=== PATIENT | male | born 1990 | race Asian ===

== ENCOUNTER → 2017-02-27 | Outpatient (CLI) | payer OTHER | PROVIDERS: ATTEND Physician Assistant | DX: R13.10 Dysphagia, unspecified (principal) | CPT/HCPCS: 92611-GN ==

== ENCOUNTER 2017-08-14 16:29 | Emergency (ER) | payer OTHER ==
[2017-08-14 16:35] VITALS: RESP 18; O2SAT 96
[2017-08-14] MEDS ORDERED: HYOSCYAMINE SULFATE 0.125 MG TAB PO ONE (17:01)
[2017-08-14] MEDS ORDERED: LIDOCAINE 2% VISCOUS 15 ML UDCUP PO ONE (17:01)
[2017-08-14] MEDS ORDERED: MAG HYDROX/AL HYDROX/SIMETH 30 ML UDCUP PO ONE (17:01)
--- NOTE | 2017-08-14 17:04 | EDPHY ---
H & P Stated Complaint: EPIGASTRIC OAIN WITH WATERY STOOLS . DENIES N,V - Personal History Current Tetanus/Diphtheria Vaccine: Yes Current Tetanus Diphtheria and Acellular Pertussis (TDAP): Yes - Medical/Surgical History Hx Asthma: No Hx Chronic Respiratory Disease: No Hx Diabetes: No Hx Cardiac Disease: No Hx Renal Disease: No Hx Cirrhosis: No Hx Alcoholism: No Hx HIV/AIDS: No Hx Splenectomy or Spleen Trauma: No Other PMH: NO PMH - Social History Smoking Status: Never smoked Time Seen by Provider: 08/14/17 16:56 HPI/ROS: CHIEF COMPLAINT: epigastric pain watery stools since last evening HISTORY OF PRESENT ILLNESS: 26-year-old male generally healthy, no history of chronic abdominal pathology or abdominal surgeries complaining of epigastric cramping, watery stools since 11:00 p.m. last evening. No radiation of pain. No back pain. No lower abdominal pain. No nausea or vomiting. Positive appetite currently. No genitalia pain. No abdominal or genitalia trauma. No syncope or near syncope. No flu-like symptoms. PRIMARY CARE PROVIDER: [facility] REVIEW OF SYSTEMS: A ten point review of systems was performed and is negative with the exception of the items mentioned in the HPI PAST MEDICAL & SURGICAL HISTORY: No history of abdominal surgeries SOCIAL HISTORY:nonsmoker. No alcohol use. PHYSICAL EXAM (Prior to examination, patient consented to physical exam, hands were washed and my usual and customary physical exam procedures followed) 1) GENERAL: Well-developed, well-nourished, alert and oriented. Appears to be in no acute distress. Appears well overall 2) HEAD: Normocephalic, atraumatic 3) HEENT: Pupils equal, round, reactive to light bilaterally. Sclera anicteric. Nasopharynx, oropharynx, clear, no lesions. Moist mucous membranes 4) NECK: Full range of motion, no meningeal signs. 5) LUNGS: Clear auscultation bilaterally, no wheezes, no rhonchi, no retractions. 6) HEART: Regular rate and rhythm, no murmur, no heave, no gallop. 7) ABDOMEN: No guarding, tender to palpation midline epigastrium. No palpable or pulsatile mass. negative McBurney's, negative Melgar's, negative Rovsing's, negative peritoneal sign, 8) MUSCULOSKELETAL: Moving all extremities, no focal areas of tenderness, no obvious trauma. No peripheral edema or discoloration. 9) BACK: No CVA tenderness, no midline vertebral tenderness, no fluctuance, no step-off, no obvious trauma, no visual or palpable abnormality. 10) SKIN: No rash, no petechiae. 11) Psychiatric: Patient is oriented X 3, there is no agitation. DIFFERENTIAL DIAGNOSIS: In no particular order, including but not limited to biliary colic, cholecystitis, peptic ulcer disease, pancreatitis, and gastroenteritis. This is a partial list of diagnoses considered. These considerations are based on history, physical exam, past history and reassessment. (Vikash Burrows) Constitutional: Initial Vital Signs Temperature (C) 37.0 C 08/14/17 16:31 Heart Rate 94 08/14/17 16:31 Respiratory Rate 18 08/14/17 16:31 Blood Pressure 115/77 08/14/17 16:31 O2 Sat (%) 96 08/14/17 16:31 O2 Delivery Mode Room Air Allergies/Adverse Reactions: No Known Allergies Allergy (Unverified 08/14/17 16:34) Home Medications: Medication Instructions Recorded NK [No Known Home Meds] 08/14/17 Medical Decision Making ED Course/Re-evaluation: 5:04 p.m.:Care of patient under supervision of primary supervising physician Dr Sanabria . 5:58 p.m.: Re-evaluation, discussed his laboratory studies, H&H elevated which I think are more likely secondary to hemoconcentration and volume depletion. Given IV hydration. He has been re-evaluated after GI cocktail and notes improvement in symptoms. Re-evaluated abdomen at this time which is soft, continued mild tenderness in the epigastrium with negative Melgar's, negative McBurney's point pain. At this time I think that acute surgical abdominal pathology, acute appendicitis, acute cholecystitis, acute pancreatitis, are less than likely in this patient. I do not think that imaging studies are indicated at this time. 6:40 p.m.: Re-evaluation, he is resting comfortably, asymptomatic, IV hydration complete, he is tolerating oral intake. However he has been informed that early presentation of these or other processes has not been ruled out and I therefore recommended 12 hour recheck in the emergency department which he is agreeable with. I re-examined his abdomen at this time which is soft no guarding or rebound no epigastric discomfort no periumbilical pain. States that he is hungry and inquires whether upon leaving he can go eat a Chipot[employer] burrito which I recommended against. I recommended bland food. (Vikash Burrows) Other Provider: PHYSICIAN DOCUMENTATION: The patient was evaluated and managed by the Physician [employer]airing Supervisor. My co- signature indicates that I have reviewed this chart and I agree with the findings and plan of care as documented. I am the secondary supervising physician. (Jonas Sanabria) - Data Points Laboratory Results: Laboratory Results 08/14/17 17:12 08/14/17 17:12 08/14/17 08/14/17 17:12 17:12 WBC 6.94 10^3/uL 10^3/uL (3.80-9.50) RBC 6.50 10^6/uL H 10^6/uL (4.40-6.38) Hgb 17.7 g/dL H g/dL (13.7-17.5) Hct 54.1 % H % (40.0-51.0) MCV 83.2 fL fL (81.5-99.8) MCH 27.2 pg L pg (27.9-34.1) MCHC 32.7 g/dL g/dL (32.4-36.7) RDW 13.2 % % (11.5-15.2) Plt Count 223 10^3/uL 10^3/uL (150-400) MPV 10.1 fL fL (8.7-11.7) Neut % (Auto) 87.3 % H % (39.3-74.2) Lymph % (Auto) 7.9 % L % (15.0-45.0) [place] % (Auto) 3.5 % L % (4.5-13.0) Eos % (Auto) 0.7 % % (0.6-7.6) Baso % (Auto) 0.3 % % (0.3-1.7) Nucleat RBC Rel Count 0.0 % % (0.0-0.2) Absolute Neuts (auto) 6.06 10^3/uL 10^3/uL (1.70-6.50) Absolute Lymphs (auto) 0.55 10^3/uL L 10^3/uL (1.00-3.00) Absolute Monos (auto) 0.24 10^3/uL L 10^3/uL (0.30-0.80) Absolute Eos (auto) 0.05 10^3/uL 10^3/uL (0.03-0.40) Absolute Basos (auto) 0.02 10^3/uL 10^3/uL (0.02-0.10) Absolute Nucleated RBC 0.00 10^3/uL 10^3/uL (0-0.01) Immature Gran % 0.3 % % (0.0-1.1) Immature Gran # 0.02 10^3/uL 10^3/uL (0.00-0.10) Sodium 142 mEq/L mEq/L (134-144) Potassium 4.3 mEq/L mEq/L (3.5-5.2) Chloride 103 mEq/L mEq/L (97-110) Carbon Dioxide 24 mEq/l mEq/l (22-31) Anion Gap 15 mEq/L mEq/L (8-16) BUN 16 mg/dL mg/dL (7-23) Creatinine 0.9 mg/dL mg/dL (0.7-1.3) Estimated GFR > 60 Glucose 97 mg/dL mg/dL (70-100) Calcium 9.6 mg/dL mg/dL (8.5-10.4) Total Bilirubin 1.0 mg/dL mg/dL (0.1-1.4) Conjugated Bilirubin 0.4 mg/dL mg/dL (0.0-0.5) Unconjugated Bilirubin 0.6 mg/dL mg/dL (0.0-1.1) AST 23 IU/L IU/L (17-59) ALT 37 IU/L IU/L (21-72) Alkaline Phosphatase 69 IU/L IU/L (38-126) Total Protein 8.4 g/dL H g/dL (6.3-8.2) Albumin 5.1 g/dL H g/dL (3.5-5.0) Lipase 43 IU/L IU/L (23-300) Medications Given: Discontinued Medications Al Hydroxide/Mg Hydroxide (Maalox Susp) 30 ml PO ONCE ONE Stop: 08/14/17 17:02 Last Admin: 08/14/17 17:51 Dose: 30 ml Hyoscyamine Sulfate (Levsin, Hyomax-Sl) 0.25 mg PO ONCE ONE Stop: 08/14/17 17:02 Last Admin: 08/14/17 17:51 Dose: 0.25 mg Lidocaine (Lidocaine 2% Viscous) 15 ml PO ONCE ONE Stop: 08/14/17 17:02 Last Admin: 08/14/17 17:51 Dose: 15 ml Departure - Departure Disposition: Home, Routine, Self-Care Clinical Impression: Volume depletion, Epigastric abdominal pain Condition: Good Instructions: Abdominal Pain (ED) Additional Instructions: Seek immediate medical attention if you develop new or worsening symptoms, if you develop fevers, chills, inability to tolerate oral intake or any other symptoms that concerns you. Referrals: Return, to the ER in 12 hours for recheck [Other] - 08/15/17 7:00 am
[2017-08-14 17:25] LABS: PLATELET COUNT 223 10^3/uL (150-400)
[2017-08-14] MEDS ORDERED: NS 1,000 ML IV ONE (18:05)
[2017-08-14 19:16] VITALS: BP 132/84; PULSE 87; TEMP 100.6
== END 2017-08-14 19:24 | disposition home or self-care (01) ==
PROC: 3E0337Z Introduction of Electrolytic and Water Balance Substance into Peripheral Vein, Percutaneous Approach (ICD-10-PCS; principal; 2017-08-14)
DX: R10.13 Epigastric pain (principal); E86.9 Volume depletion, unspecified